=== PATIENT | male | born 1965 | race Caucasian/White ===

== ENCOUNTER 2018-03-21 21:23 | Emergency (ER) | payer SELFPAY ==
[~2018-03-21] VITALS: Ht 172.7 cm; Wt 74.8 kg
[2018-03-21 21:35] VITALS: BP 144/81
[2018-03-21] MEDS ORDERED: CARDURA4 MG ORAL (21:35)
--- NOTE | 2018-03-21 21:35 | NUR ---
ED Nurse Note: Pt arrived ED from home. C/o Flu like symptoms for 3 days with dry coughing. Pt is A/O x4. Vital signs stable at this time, waiting for orders.
[2018-03-21] MEDS ORDERED: TAMIFLU75 MG ORAL (22:00)
[2018-03-21] MEDS ORDERED: PROMETH-CODEIN 65 ML PO (22:00)
--- NOTE | 2018-03-21 22:01 | Emergency Room Report ---
History of Present Illness General Chief Complaint: Flu Like Symptoms Source: Patient Present Illness HPI This is a 53-year-old [place]er speaking male whose been in [facility]. He presents with chief complaint of cough. Has been ongoing for last 4 days. No nausea no vomiting. Worse with inspiration. Worse with lying flat. No relief with [id number] medication. is here for the same thing. Initially had fever. Coughing is nonproductive in nature. Allergies: Coded Allergies: No Known Allergies (Unverified , 03/21/18) Patient History Past Medical History: see triage record, old chart reviewed, HTN Past Surgical History: none Pertinent Family History: none Social History: Denies: smoking Immunizations: other Reviewed Nursing Documentation: PMH: Agreed; PSxH: Agreed Nursing Documentation-PMH Hx Hypertension: Yes Review of Systems Constitutional: Reports: fever Eye: Denies: eye pain, blurred vision ENT: Denies: ear pain, nose congestion, throat swelling Respiratory: Reports: cough, shortness of breath Cardiovascular: Denies: chest pain, palpitations Gastrointestinal: Denies: abdominal pain, diarrhea, nausea, vomiting Musculoskeletal: Denies: back pain, joint pain Skin: Denies: rash Neurological: Denies: headache, numbness Endocrine: Denies: increased thirst, increased urine Hematologic/Lymphatic: Denies: easy bruising All Other Systems: negative except mentioned in HPI Physical Exam Vital Signs Date Time Temp Pulse Resp B/P (MAP) Pulse Ox O2 Delivery O2 Flow Rate FiO2 03/21/18 21:27 99.7 94 16 148/83 94 Room Air vitals normal except for low-grade fever Sp02 EP Interpretation: reviewed, normal General Appearance: well appearing, no apparent distress, alert Head: normocephalic, atraumatic Eyes: bilateral eye PERRL, bilateral eye EOMI ENT: hearing grossly normal, normal pharynx Neck: full range of motion, supple, no meningismus Respiratory: chest non-tender, lungs clear, normal breath sounds Cardiovascular #1: regular rate, rhythm, no murmur Gastrointestinal: normal bowel sounds, non tender, no mass, no organomegaly, no bruit, non-distended Musculoskeletal: back normal, gait/station normal, normal range of motion Psychiatric: mood/affect normal Skin: warm/dry Medical Decision Making Diagnostic Impression: Primary Impression: Influenza-like symptoms ER Course Patient with flulike illness. No evidence of any sepsis, pneumonia, ACS or PE. Will discharge home. Last Vital Signs Date Time Temp Pulse Resp B/P (MAP) Pulse Ox O2 Delivery O2 Flow Rate FiO2 03/21/18 21:27 99.7 94 16 148/83 94 Room Air Status: unchanged Disposition: HOME, SELF-CARE Condition: Stable Scripts Promethazine HCl/Codeine (Prometh-Codein 6.25-10 mg/5 ml) 5 Ml Syrup 5 ML PO Q6HR, #120 ML Prov: Tonio Vance MD 03/21/18 Oseltamivir Phosphate (Tamiflu) 75 Mg Capsule 75 MG ORAL TWICE A DAY, #10 CAP Prov: Tonio Vance MD 03/21/18 Additional Instructions: Increase fluids. Motrin or Tylenol for fever. Return if symptom worsen. Follow-up with your DrFox in 7 days. Tonio Vance MD Mar 21, 2018 22:01
[2018-03-21 22:10] VITALS: BP 143/82
--- NOTE | 2018-03-21 22:10 | NUR ---
ED Nurse Note: Pt has seen by Dr. Vance, all orders carried out.Pt is ready for Discharge. D/C instruction and Prescription given to Pt and verbalized understanding. ID band removed. Pt d/c from ED with steady gait. Accompanied by his Family.
== END 2018-03-21 22:10 | disposition home or self-care (01) ==
LOC: EMR 21:53
DX: R05 Cough (principal); R50.9 Fever, unspecified; I10 Essential (primary) hypertension; R06.02 Shortness of breath
CPT/HCPCS: 99282